=== PATIENT | male | born 2000 | race Caucasian/White ===

== ENCOUNTER 2023-10-24 10:30 | Emergency (ER) | payer SELFPAY ==
[2023-10-24 13:10] LABS: BASOPHILS ABSOLUTE AUTO 0.02 K/uL (0.00-0.20); BASOPHILS PERCENT AUTO 0.4 % (0.0-1.0); EOSINOPHILS ABSOLUTE AUTO 0.13 K/uL (0.00-0.45); EOSINOPHILS PERCENT AUTO 2.6 % (0.0-6.0); HEMATOCRIT 38.3 % (42.0-52.0); HEMOGLOBIN 12.6 g/dL (14.0-18.0); IMMATURE GRAN ABSOLUTE AUTO 0.01 K/uL (0.00-0.05); IMMATURE GRAN PERCENT AUTO 0.2 % (0.0-0.4); LYMPHOCYTES PERCENT AUTO 33.6 % (24.0-44.0); MEAN CORPUSCULAR HEMOGLOBIN 26.5 pg (28.0-32.0); MEAN CORPUSCULAR HGB CONC 32.9 g/dL (32.0-36.0); MEAN CORPUSCULAR VOLUME 80.5 fL (83.0-99.0); MEAN PLATELET VOLUME 10.5 fL (9.4-12.4); MONOCYTES ABSOLUTE AUTO 0.54 K/uL (0.00-0.80); MONOCYTES PERCENT AUTO 10.7 % (0.0-8.0); NEUTROPHILS ABSOLUTE AUTO 2.66 K/uL (1.80-7.70); NEUTROPHILS PERCENT AUTO 52.5 % (41.0-71.0); PLATELET COUNT,PLT 166 K/uL (150-400); RED BLOOD CELL COUNT 4.76 M/uL (4.52-5.90); WHITE BLOOD CELL COUNT,WBC 5.06 K/uL (3.9-11.3)
[2023-10-24 13:23] LABS: INR 1.04 (0.86-1.11); PTT,PARTIAL THROMBOPLSTIN TIME 26.3 SEC (23.9-30.7)
[2023-10-24 13:30] LABS: A/G RATIO 1.3 (0.9-1.6); ALANINE AMINOTRANSFERASE,ALT 26 IU/L (14-63); ALBUMIN 3.8 g/dL (3.4-5.0); ALKALINE PHOSPHATASE 54 U/L (46-116); ASPARTATE AMNIOTRANSFERASE,AST 22 IU/L (15-37); BILIRUBIN TOTAL 0.4 mg/dL (0.2-1.0); BLOOD UREA NITROGEN,BUN 8 mg/dL (7.0-18.0); CALCIUM 8.7 mg/dL (8.5-10.1); CHLORIDE,CL 108 mmol/L (98-107); CREATININE 0.7 mg/dL (0.8-1.3); EST CRCL DRUG DOSING (CG) 164.13 mL/min; GLUCOSE RANDOM 99 mg/dL (74-106); MAGNESIUM 2.3 mg/dL (1.8-2.4); POTASSIUM,K 4.4 mmol/L (3.5-5.1); PROTEIN TOTAL,TP 6.7 g/dL (6.4-8.2); SODIUM,NA 142 mmol/L (136-148)
[2023-10-24 13:36] LABS: ESTIMATED GFR 133 mL/min (>60)
== END 2023-10-24 15:00 | disposition home or self-care (01) ==
LOC: MW.ED 10:30
DX: R20.0 Anesthesia of skin (principal); R20.2 Paresthesia of skin
CPT/HCPCS: 36415; 73030-26-LT; 73030-LT; 73090-26-LT; 73090-LT; 73130-26-LT; 73130-LT; 80053; 83735; 84484; 85025; 85610; 85730; 93005; 93010; 93971-26-LT; 93971-LT; 99283; 99284